=== PATIENT | female | born 1965 | race Two or more races ===

== ENCOUNTER 2017-12-26 11:05 | Outpatient (CLI) | payer OTHER | END 2017-12-26 11:12 | disposition home or self-care (01) | LOC: MAMO-SONO 11:05 | DX: Z12.31 Encounter for screening mammogram for malignant neoplasm of breast (principal); Z87.898 Personal history of other specified conditions; N60.11 Diffuse cystic mastopathy of right breast; N60.12 Diffuse cystic mastopathy of left breast; E04.0 Nontoxic diffuse goiter ==

== ENCOUNTER 2018-07-04 09:31 | Outpatient (CLI) | payer OTHER | END 2018-07-04 09:33 | disposition home or self-care (01) | LOC: SONOGRAMA 09:31 | DX: E04.2 Nontoxic multinodular goiter (principal) ==